=== PATIENT | female | born 1980 | race African-American/Black ===

== ENCOUNTER 2024-10-25 12:51 | Outpatient (AMB) | payer OTHER, SELFPAY ==
--- NOTE | 2024-10-25 12:55 | A.SPINEOV_ITS ---
Vital Signs 10/25/24 13:01 Height 5 ft 11 in Weight 336 lb BMI 46.9 Intake Visit Reasons: joint pain Intake Note: Ms. Carroll is here today c/o hip and back pain that causes tingling and numbness to her right leg. Venereal Disease Control Head Required: No Allergies Penicillins Allergy (Severe, Verified 10/25/24 13:02) Hives Assessment & Plan Assessment & Plan (1) SI (sacroiliac) joint dysfunction: Code(s): M53.3 - Sacrococcygeal disorders, not elsewhere classified Category: Medical Plan Dear FELISHA Sanchez, Thank you for referring Tika to our office today. She is a pleasant 44-year-old female who comes in today with a chief complaint of right sided low back pain. She has a somewhat longstanding history of right SI joint dysfunction, and recently had a right-sided SI joint steroid injection on 06/20/2024 which provided about 75% relief for 2 weeks. She had a 2nd follow-up injection on 10/03/2024 which lowered her overall pain from 8/10 to a 2/10. Reportedly after this injection she was able to complete her ADLs without issue before the medication wore off. Unfortunately, her pain has once again returned. She states that her pain began roughly 2 years ago without any known inciting incident. She reports that sitting up from a low positions such as a low car or from her recliner/chair at home cause her increased pain. Bending and picking things up also contribute to her pain. She does report some pain in her right anterior thigh well which is associated with her right hip pain. When describing her pain she points her finger directly to the right SI joint area. She denies any numbness/tingling associated with the pain. She denies any significant weakness of her lower extremities. No notable history of childbirth. PMH: Asthma, migraines, hypertension, insomnia, seasonal allergies, unspecified heart arrhythmia. Social hx: The patient denies smoking, reports no substance use. Medications: Montelukast, triamcinolone, clotrimazole/betamethasone, Botox, we will go be, zolpidem, furosemide, olmesartan, metoprolol, fluticasone, Breo Ellipta, cetirizine, riboflavin, sumatriptan, trazodone, acetazolamide, Ve ntolin. Allergies: Penicillin, pollen, cats, dogs. Physical exam: The patient has 5/5 strength in her upper and lower extremities, but does elicit pain to full strength testing of the right iliopsoas. No significant sensational deficits on exam. Her reflexes are absent in the bilateral patella and 1+ hypoactive elsewhere. She ambulates well without an antalgic gait. (+) Roberto's on the right, (+) gaenslens on the right, (+) right- sided SI joint compression test, (+) right-sided Juanjo finger test. (-) Cotto's, (-) clonus, (-) bilateral straight leg raise. Imaging review: MRI of the hip completed at [facility] in 2021 shows no acute pathology, although this exam is limited due to patient movement. MRI of the lumbar spine also completed at [facility] in 2018 was unavailable for image review. The MRI report state there was slight impingement of the left L2 nerve root but no other pathology was seen. More recent MRI lumbar completed at [facility] (patient has disc) shows similar left L2 impingement as described in 2018, with no other notable changes. Impression: Tkia is a very pleasant 44-year-old female who comes in today with a chief complaint of right-sided hip/low back pain which has been ongoing for the past 2 years. She has a known history of SI joint dysfunction on the right diagnosed and treated by our colleagues at [facility]. She has attempted several different cortisone injections, and experienced relief from 2 rounds of SI joint injections on the right. Unfortunately her pain continues to return just weeks after her injections. Given her history and physical exam, and lack of lumbar pathology explaining her right-sided symptoms, I believe she would be a good candidate for a right-sided SI joint allograft fusion. The patient seems somewhat to continued for the surgery as this would mean time off from work. I extensively discussed the surgical procedure and the postoperative healing course. I encouraged her to take some time to think about it and to call us back with a decision. In the interim I will review her case with Dr. Hargrove. Thank you for allowing us to care for your patient. The total time spent with this visit with this patient was 45 minutes reviewing history, physical exam, MRI imaging review, and implementation of treatment plan or further diagnostic testing Braxton Hargrove MD,PhD [facility] Coding Level of Care Code New Pt Level 4 (72185) Diagnoses SI (sacroiliac) joint dysfunction M53.3
[2024-10-25 13:01] VITALS: BMI 46.9
== END 2024-10-25 14:26 | disposition home or self-care (01) ==
PROVIDERS: PCP Internal Medicine; Referring Provider Nurse Practitioner Family; Visit Provider Physician Assistant
DX: M53.3 Sacrococcygeal disorders, not elsewhere classified (principal)
CPT/HCPCS: 99204

== ENCOUNTER → 2024-10-25 12:51 | Outpatient (BNVA) | payer OTHER, SELFPAY | PROVIDERS: PCP Internal Medicine; Referring Provider Nurse Practitioner Family; Visit Provider Physician Assistant ==

== ENCOUNTER 2025-03-15 11:51 | Outpatient (REF) | payer OTHER, SELFPAY ==
--- OUTSIDE RECORDS SUMMARY | 2025-03-15 13:23 | XMS_ITS | Clinical Summary ---
Author Organization [facility] Address [address] [place] [address] Phone Care Team Providers Care Heating Engineer Name Role Phone Yamileth Bryant Primary Care Provider [phone] Allergies Active Allergy Reactions Criticality Noted Date Comments Penicillins Hives 02/20/2025 Medications albuterol HFA (ProAir HFA) 90 mcg/actuation inhaler Inhale 2 puffs by mouth every 4 hours. Active levocetirizine (XYZAL) 5 mg tablet Take by mouth 1 (one) time each day in the evening. Active metoprolol succinate (TOPROL-XL) 100 mg 24 hr tablet Take 1 tablet (100 mg total) by mouth 1 (one) time each day. Do not crush or chew. Active montelukast (SINGULAIR) 10 mg tablet Take 1 tablet (10 mg total) by mouth at bedtime. Active norethindrone (AYGESTIN) 2.5 mg tablet Active triamcinolone (KENALOG) topical spray Apply topically 2 (two) times a day. Active fluticasone furoate-vilante roL (Breo Ellipta) 200-25 mcg/dose inhaler Inhale by mouth. Active atorvastatin (LIPITOR) 80 mg tablet Take 1 tablet (80 mg total) by mouth at bedtime. Active furosemide (LASIX) 40 mg tablet Take by mouth. Activ e olmesartan (BENICAR) 40 mg tablet Take 1 tablet (40 mg total) by mouth 1 (one) time each day. Active umeclidinium (Incruse Ellipta) 62.5 mcg/actuation inhalation Inhale 1 puff by mouth. Active ketotifen fumarate (ZADITOR) 0.035 % ophthalmic solution 1 drop 2 (two) times a day. Active tirzepatide, weight loss, (Zepbound) 5 mg/0.5 mL injection Inject 0.5 mL (5 mg total) under the skin every 7 (seven) days. Active terbinafine (LamISIL) 250 mg tablet Take 1 tablet (250 mg total) by mouth 1 (one) time each day. Active benzonatate (TESSALON) 200 mg capsule Take 1 capsule (200 mg total) by mouth 3 (three) times a day if needed for cough. Do not crush or chew. Active onabotulinumtox Griffin (BOTOX INJ) Inject 200 Units as directed. Active acetaZOLAMIDE (DIAMOX) 250 mg tablet Take 1 tablet (250 mg total) by mouth 1 (one) time each day. Active acetaZOLAMIDE (DIAMOX) 500 mg 12 hr capsule Take 1 capsule (500 mg total) by mouth 2 (two) times a day. Active riboflavin (VITAMIN B2) 400 mg tablet Take 1 tablet (400 mg total) by mouth 1 (one) time each day. Active Encounters Date Type Department Care Team Description 02/20/2025 2:00 PM EDT Office Visit [facility] Hemat[facility] Oncology [address] [place] [phone] Edelmira Gonzalez PA Iron deficiency anemia due to chronic blood loss (Primary Dx); Uncontrolled hypertension; Menorrhagia with irregular cycle 02/06/2025 Telephone [facility] Hematology Oncology [address] [place] [phone] Wilda Solorzano MD from Last 3 Months Surgical History Surgery Date Site/Laterality Comments OTHER SURGICAL HISTORY PROCEDURE:TONSILLECTOMY AND ADENOIDECTOMY Medical History Medical History Date Comments Anemia DX:Anemia Anemia DX:Anemia Hypertension DX:Hypertension Rhinitis DX:Rhinitis Pseudotumor cerebri DX:Pseudotum or cerebri Migraine DX:Migraine Social History Tobacco Use Types Packs/Day Years Used Date Smoking Tobacco: Never Smokeless Tobacco: Never Alcohol Use Standard Drinks/Week Comments No 0 (1 standard drink = 0.6 oz pur e alcohol) Comments Unknown Sex and Gender Information Value Date Recorded Sex Assigned at Not on file Legal Sex Female 11:26 AM EST Gender Identity Not on file Sexual Orientation Not on file Obstetrics History Last Filed Vital Signs Vital Sign Reading Time Taken Comments Blood Pressure 189/102 02/20/2025 2:20 PM EDT Pulse 86 02/20/2025 2:05 PM EDT Temperature 36.1 ??C (97 ??F) 02/20/2025 2:05 PM EDT Respiratory Rate - - Oxygen Saturation 100% 02/20/2025 2:05 PM EDT Inhaled Oxygen Concentration - - Weight 159 kg (351 lb) 02/20/2025 2:05 PM EDT Height 177.8 cm (5' 10 ) 06/16/2022 11:21 AM EDT Body Mass Index 50.36 06/16/2022 11:21 AM EDT Plan of Treatment Upcoming Encounters Date Type Department Care Team (Late st Contact Info) Description 02/19/2026 11:45 AM EDT Office Visit [facility] Hematology Oncology [address] [place] [phone] Wilda Solorzano MD [address] [place] [phone] Health Maintenance Due Date Last Done Comments Breast Cancer Screening 1978 Cervical Cancer Screening: P ap Smear 1999 Hepatitis B Vaccines (3 of 3 - 19+ 3-dose series) 06/05/2020 03/12/2020, 01/05/2020, 12/06/2019 Cholesterol Screening (Lipid Panel) 10/25/2022 Colorectal Cancer Screening: Colonoscopy 10/25/2022 Depression Screening 10/25/2022 HIV Screening 10/25/2022 Hepatitis C Screening 10/25/2022 Social Influencers of Health Screening 10/25/2022 Hypertension/CHF/CAD Annual BMP Blood Test 10/30/2022 HPV Vaccines (3 - 3-dose SCD M series) 05/08/2023 01/15/2023, 11/07/2022 COVID-19 Vaccine ( - 2023-2 5 season) 2024 Influenza Vaccine (Season Ended) 2025 DTaP,Tdap,and Td Vaccines (2 - Td or Tdap) 12/15/2034 12/15/2024 Pneumococcal Vaccine: Pediatrics (0 to 5 Years) and At-Risk Patients (6 to 64 Years) Completed 11/07/2022 HIB Vaccines Aged Out No longer eligi ble based on patient's age to complete this topic Hepatitis A Vaccines Aged Out No long er eligible based on patient's age to complete this topic IPV Vaccines Aged Out No longer eligi ble based on patient's age to complete this topic MMR Vaccines Aged Out No longer eligi ble based on patient's age to complete this topic Meningococcal ACWY Vaccine Aged Out N o longer eligible based on patient's age to complete this topic Meningococcal B Vaccine Aged Out No l onger eligible based on patient's age to complete this topic RSV Immunization Patients Under 20 months Aged Out No longer eligible b ased on patient's age to complete this topic Varicella Vaccines Aged Out No longer eligible based on patient's age to complete this topic Insurance [facility] [address] [place] [address] Care Teams Heating Engineer Relationship Specialty Start Date End Date Yamileth Bryant PA [address] [place] [phone] PCP - General 11/14/24
--- OUTSIDE RECORDS SUMMARY | 2025-03-15 13:23 | XMS_ITS | Clinical Summary ---
Author Organization [facility] Address [address] [place] [address] Care Team Providers Care Sales Assistants And Salespersons Name Role Phone Mars Gonzalez MD Primary Care Provider [phone] Allergies Active Allergy Reactions Criticality Noted Date Comments Bupropion 10/12/2018 Penicillins 06/23/2017 Medications Medication Sig Dispensed Refills Start Date End Date Status acetaZOLAMIDE (DIAMOX SEQUELS) 500 MG capsule Take 500 mg by mouth 3 (three) times a day. 0 Active furosemide (LASIX) 40 MG tablet Take 40 mg by mouth 2 (two) times a day. 0 Active montelukast (SINGULAIR) 10 MG tablet Take 1 tablet (10 mg total) by mouth every night at bedtime. 0 Active lisinopril (PRINIVIL,ZESTRIL) tablet 40 mg Take 40 mg by mouth daily. 0 Active acetaZOLAMIDE (DIAMOX) 125 MG tablet Take 1 tablet (125 mg total) by mouth 3 (three) times a day. 0 Active SUMATRIPTAN-NAPROXEN SODIUM PO Take 100 mg by mouth daily as needed. 0 Active metoprolol succinate (TOPROL-XL) 24 hr tablet 100 mg Take 100 mg by mouth daily. 0 Active ProAir HFA 108 (90 Base) MCG/ACT inhaler Inhale 2 puffs into the lungs every 4 (four) hours. 0 03/03/2022 Active ammonium lactate (AMLACTIN) 12 % cream APPLY TO BODY TWICE DAILY UP TO 4X DAILY 0 04/17/2022 Active Breo Ellipta 100-25 MCG/INH inhaler daily. 0 04/23/2022 Active Incruse Ellipta 62.5 MCG/INH AEPB INHALE 1 PUFF EVERY 24 HOURS DOSES SHOULD BE TAKEN AT LEAST 24 HOURS APART 0 04/23/2022 Active Triamcinolone Acetonide 55 MCG/ACT AERO SPRAY 2 SPRAYS INTO EACH NOSTRIL EVERY DAY 0 04/17/2022 Active cetirizine (ZyrTEC) 10 MG tablet Take 1 tablet by mouth every night at bedtime. 0 09/20/2020 Active losartan (COZAAR) 100 MG tablet Take 100 mg by mouth daily. 0 04/17/2022 Active norethindrone (MICRONOR) 0.35 MG tablet Take 1 tablet (0.35 mg total) by mouth daily. 0 03/29/2023 Active Magnesium Gluconate 250 MG TABS Take 250 mg by mouth. 0 09/04/2022 Active levocetirizine (XYZAL) 5 MG tablet Take 1 tablet (5 mg total) by mouth daily as needed. 0 03/26/2023 Active Ozempic, 0.25 or 0.5 MG/DOSE, 2 MG/3ML SOPN 0 04/23/2023 Ac tive olmesartan (BENICAR) tablet 20 mg Take by mouth. 0 08/23/2023 Active zolpidem (AMBIEN) 5 MG tablet Take by mouth. 0 04/19/2024 Active Active Problems Problem Noted Date Diagnosed Date Excessive sweating 06/16/2022 Low serum vitamin B12 04/26/2020 Iron deficiency anemia secondary to blood loss ( chronic) 06/14/2019 Absolute anemia 06/14/2019 Menorrhagia with irregular cycle 06/14/2019 Pseudotumor cerebri syndrome 06/14/2019 Social History Tobacco Use Types Packs/Day Years Used Date Smoking Tobacco: Never Smokeless Tobacco: Never Alcohol Use Standard Drinks/Week Comments No 0 (1 standard drink = 0.6 oz pur e alcohol) Sex and Gender Information Value Date Recorded Sex Assigned at Female 04/23/2023 4:27 PM EDT Gender Identity Not on file Sexual Orientation Not on file Job Start Date Occupation Industry Not on file Not on file Not on file Last Filed Vital Signs Vital Sign Reading Time Taken Comments Blood Pressure 185/95 07/15/2024 2:00 PM EDT Pulse 93 07/15/2024 11:20 AM EDT Temperature 36.7 ??C (98.1 ??F) 07/15/2024 1 1:20 AM EDT Respiratory Rate 18 07/15/2024 11:2 0 AM EDT Oxygen Saturation 100% 07/15/2024 11: 20 AM EDT Inhaled Oxygen Concentration - - Weight 147.7 kg (325 lb 9.6 oz) 022 11:21 AM EDT Height 177.8 cm (5' 10 ) 06/16/2022 11: 21 AM EDT Body Mass Index 46.72 06/16/2022 11:21 AM EDT Plan of Treatment Health Maintenance Due Date Last Done Comments Hepatitis C Screening 1978 COVID-19 Vaccine (#1) 01/27/1979 Depression Screening 1990 BMI Counseling 1996 Preventative Health Evaluation 1996 DTap / Tdap / Td (1 - Tdap) 1997 Cervical Cancer Screening (Pap Smear) 1999 Hepatitis B Vaccines (3 of 3 - 19+ 3-dose series) 06/05/2020 03/12/2020, 01/05/2020, 12/06/2019 Colon Cancer Screening (Colonoscopy) 2023 Influenza Vaccine (#1) 2024 Pneumococcal Vaccine Aged Out No long er eligible based on patient's age to complete this topic RSV Ped < 20 months Aged Out No longe r eligible based on patient's age to complete this topic Insurance Payer Benefit Plan / Group Subscriber ID Effective Dates Phone Address [facility] [id number] 2023-Present [address] [facility] [address] [place] [address] HMO Care Teams Sales Assistants And Salespersons Relationship Specialty Start Date End Date Mars Gonzalez MD [address] [facility] [address] [place] [phone] PCP - General Internal Medicine 06/26/17
--- OUTSIDE RECORDS SUMMARY | 2025-03-15 13:23 | XMS_ITS | Encounter Summary ---
Author Organization [employer] Address [address] [facility] 7 [place] [address] Care Team Providers Care Vice President Business & Corporate Development Name Role Phone PcpJenny Unassigned Primary Care Provider U navailable Provider, Not In System Primary Care Provider Un available Tiera Blanco OD Unavailable Cristian Gonzalez Primary Care Provider [phone] Encounter Details Date Type Department Care Team (Late st Contact Info) Description 02/16/2023 Orders Only Jenny [facility] OPTOMETRY [address] [place] [address] Tiera Blanco, OD [address] [place] [address] Social History Tobacco Use Types Packs/Day Years Used Date Smoking Tobacco: Never Comments Unknown Sex and Gender Information Value Date Recorded Sex Assigned at Female 01/20/2023 4:46 PM EST Legal Sex Female 8:40 PM EDT Gender Identity Female 01/20/2023 4:46 PM EST Sexual Orientation Straight 01/20/2023 4: 46 PM EST COVID-19 Exposure Response Date Recorded In the last 10 days, have yo u been in contact with someone who was confirmed or suspected to have Coronavirus/COVID-19? No / Unsure 02/02/2023 4:02 PM EDT documented as of this encounter Plan of Treatment Not on file documented as of this encounter Visit Diagnoses Not on filedocumented in this encounter Care Teams Vice President Business & Corporate Development Relationship Specialty Start Date End Date Jenny Olsenssigned PCP - General Family Medicine 03/16/23 04/27/24 Provider, Not In System PCP - General Family Medicine 04/28/24 09/11/24 Cristian Gonzalez [address] [place] [address] PCP - General 09/12/24 Tiera Blanco OD [address] [place] [address] Optometry 04/28/24 Abner Tiwari [facility] Neurology 08/28/23 documented as of this encounter
--- OUTSIDE RECORDS SUMMARY | 2025-03-15 13:23 | XMS_ITS | Clinical Summary ---
Author Organization [employer] Address [address] [place] [address] [place] [address] Care Team Providers Care Photoengraving Apprentice Name Role Phone Tiera Blanco OD Unavailable Cristian Gonzalez Primary Care Provider [phone] Allergies Active Allergy Reactions Criticality Noted Date Comments Penicillin G Hives 01/13/2023 Medications UNABLE TO FIND Allergy- Injection once a week Active Triamcinolone Acetonide (NASACORT AQ NA) Nasacort AQ A ctive Fluticasone Propionate HFA (FLOVENT HFA IN) Flovent HFA A ctive Budesonide-Formote rol Fumarate (SYMBICORT IN) Symbicort Activ e Albuterol Sulfate (PROAIR HFA IN) ProAir HFA Act kenna Montelukast Sodium (SINGULAIR PO) Singulair Activ e Cetirizine HCl (ZYRTEC PO) Zyrtec Active PROPRANOLOL HCL ER PO Propanolol Hcl XR 1 Active Furosemide (LASIX PO) Lasix Active acetaZOLAMIDE (DIAMOX SEQUELS PO) Diamox Sequels Activ e OnabotulinumtoxinA (BOTOX IM) Inject into the shoulder, thigh, or buttocks. For headaches Active Ketotifen Fumarate 0.035 % solutionIndication s:Allergic conjunctivitis of both eyes Administer 1 drop into affected eye(s) 2 times daily. 5 mL 6 4 025 Active Active Problems Problem Noted Date Diagnosed Date History of Chiari malformation 09/12/2024 MATT on CPAP 09/12/2024 Severe obesity 09/12/2024 Pseudotumor cerebri 01/13/2023 Essential hypertension 10/20/2021 Asthma 10/20/2021 Tachycardia 10/20/2021 Migraine 10/20/2021 Iron deficiency anemia secondary to blood loss ( chronic) 06/14/2019 08/27/2023 Social History Tobacco Use Types Packs/Day Years Used Date Smoking Tobacco: Never Tobacco Cessation:Counseling Given: Not Answered Comments Unknown Sex and Gender Information Value Date Recorded Sex Assigned at Female 01/20/2023 4:46 PM EST Legal Sex Female 8:40 PM EDT Gender Identity Female 01/20/2023 4:46 PM EST Sexual Orientation Straight 01/20/2023 4: 46 PM EST Last Filed Vital Signs Vital Sign Reading Time Taken Comments Blood Pressure 164/98 01/20/2022 2:00 PM EST Pulse - - Temperature 36.1 ??C (97 ??F) 02/02/2023 4:10 PM EDT Respiratory Rate - - Oxygen Saturation - - Inhaled Oxygen Concentration - - Weight - - Height - - Body Mass Index - - Plan of Treatment Health Maintenance Due Date Last Done Comments CT Colonography 1978 Colonoscopy 1978 Colorectal Cancer Screening 1978 Depression Screening 1978 FIT DNA/Cologuard 1978 FIT 1978 FOBT 1978 HIV Screening 1978 Lipid Panel 1978 SDOH Screening 1978 Sigmoidoscopy 1978 Alcohol/Substance Use Screening 1990 Family Planning (PISQ) 1993 Hepatitis C Screening 1996 DTaP/Tdap/Td Vaccines (1 - Tdap) 1997 Pap Smear 1999 Cervical Cancer Screening 2008 HPV/Cotest 2008 Mammogram 2018 Hepatitis B Vaccines (3 of 3 - 19+ 3-dose series) 06/05/2020 03/12/2020, 01/05/2020, 12/06/2019 HPV Vaccines (3 - 3-dose SCDM series) 05/08/2023 01/15/2023, 01/15/2023, 11/07/2022, Additional history exists COVID-19 Vaccine (1 - 2023- season) 2024 Influenza Vaccine (#1) 2024 Tobacco Screening 09/12/2025 09/12/2024 Zoster Vaccines (1 of 2) 2028 RSV Patients and Patients Aged 60 years or older (1 - 1-dose 75+ series) 2053 Pneumococcal Vaccine: Pediatrics (0 to 5 Years) and At-Risk Patients (6 to 49) Years) Completed 11/07/2022 HIB Vaccines Aged Out No longer eligi ble based on patient's age to complete this topic Hepatitis A Vaccines Aged Out No long er eligible based on patient's age to complete this topic IPV Vaccines Aged Out No longer eligi ble based on patient's age to complete this topic Meningococcal Vaccine Aged Out No deya yolanda eligible based on patient's age to complete this topic RSV under 20 months Aged Out No longe r eligible based on patient's age to complete this topic Rotavirus Vaccines Aged Out No longer eligible based on patient's age to complete this topic Insurance [facility] Care Teams Photoengraving Apprentice Relationship Specialty Start Date End Date Cristian Gonzalez [address] [place] [id number] PCP - General 09/12/24 Tiera Blanco OD [address] [place] [address] Optometry 04/28/24 Abner Tiwari [facility] Neurology 08/28/23
--- OUTSIDE RECORDS SUMMARY | 2025-03-15 13:23 | XMS_ITS | Encounter Summary ---
Author Organization [employer] Address [address] [facility] [address] [place] [address] Care Team Providers Care Vp Genetic Name Role Phone PcpJenny Unassigned Primary Care Provider U navailable Provider, Not In System Primary Care Provider Un available Tiera Blanco OD Unavailable Cristian Gonzalez Primary Care Provider [phone] Encounter Details Date Type Department Care Team (Late st Contact Info) Description 02/16/2023 Orders Only Jenny [facility] OPTOMETRY [address] [place] [address] Tiera Blanco, OD [address] [place] [address] Social History Tobacco Use Types Packs/Day Years [...] on filedocumented in this encounter Care Teams Vp Genetic Relationship Specialty Start Date End Date Jenny Olsenssigned PCP - General Family Medicine 03/16/23 04/27/24 Provider, Not In System PCP - General Family Medicine 04/28/24 09/11/24 Cristian Gonzalez [address] [place] [address] PCP - General 09/12/24 Tiera Blanco OD [address] [place] [address] Optometry 04/28/24 Abner Tiwari [facility] Neurology 08/28/23 documented as of this encounter
== END 2025-03-15 11:52 | disposition home or self-care (01) ==
LOC: HO.HOSX 11:51
PROVIDERS: Visit Provider Physician Assistant
DX: Z13.89 Encounter for screening for other disorder (principal)

== ENCOUNTER 2025-05-02 | Outpatient (REF) | payer OTHER, SELFPAY ==
--- NOTE | ~2025-05-02 | XR_ITS ---
EXAMINATION: XR SACROILIAC JOINTS CLINICAL INFORMATION: M53.3 - Sacrococcygeal disorders, not elsewhere classified COMPARISON: None available. TECHNIQUE: 3 views of the sacroiliac joints FINDINGS: There is mild subchondral sclerosis involving the right greater than left SI joints. There is minimal irregularity of the articular portion of the mid to lower right SI joint and central and lower left SI joint. There is no bony fusion. There are marginal osteophytes inferiorly. XR/XR sacroiliac joint 1-2V IMPRESSION: Mild to moderate degenerative changes of the right SI joint and mild degenerative changes of left SI joint. Electronically signed by: Osiel Vega MD 05/02/2025 11:41 AM EDT
--- NOTE | ~2025-05-02 | CT_ITS ---
CLINICAL HISTORY: M53.3 - Sacrococcygeal disorders, not elsewhere classified CT pelvis without contrast Comparison: None provided Findings: Markedly enlarged lobulated uterus measuring 13.4 x 13.4 x 9.6 cm The bones are intact. IMPRESSION: No evidence of acute fracture or dislocation. Markedly enlarged fibroid uterus. This document has been electronically signed by: Faraz Manning MD on 05/02/2025 22:40:37
--- OUTSIDE RECORDS SUMMARY | 2025-05-16 09:42 | XMS_ITS | Clinical Summary ---
Author Organization [facility] Address [address] [place] [address] Phone Care Team Providers Care Cold Press Operator Name Role Phone Yamileth Bryant Primary Care Provider [phone] Allergies Active Allergy Reactions Criticality Noted Date Comments Penicillins Hives 02/20/2025 Medications albuterol HFA (ProAir HFA) 90 mcg/actuation inhaler Inhale 2 puffs by mouth every 4 hours. 2 Active levocetirizine (XYZAL) 5 mg tablet Take [...] Description 02/20/2025 2:00 PM EDT Office Visit [facility] Hematology Oncology [address] [place] [address] Edelmira Gonzalez PA Iron deficiency anemia due to chronic blood loss (Primary Dx); Uncontrolled hypertension; Menorrhagia with irregular cycle from Last 3 Months Surgical History Surgery [...] 86 02/20/2025 2:05 PM EDT Temperature 36.1 C (97 F) 02/20/2025 2:05 PM EDT Respiratory Rate - [...] Description 02/19/2026 11:45 AM EDT Office Visit [facility] Hematology Oncology [address] [place] [address] Nelson-Wilda Lewis MD [address] [place] [address] Health Maintenance Due Date Last Done Comments [...] patient's age to complete this topic Insurance [facility] [address] [place] [address] Care Teams Cold Press Operator Relationship Specialty Start Date End Date Yamileth Bryant PA [address] [place] [address] PCP - General 11/14/24
--- OUTSIDE RECORDS SUMMARY | 2025-05-16 09:42 | XMS_ITS | Clinical Summary ---
Author Organization [facility] Address [address] [place] [address] Care Team Providers Care Neon Technician Name Role Phone Mars Gnozalez MD Primary Care Provider [phone] Allergies Active Allergy Reactions Criticality Noted Date [...] 93 07/15/2024 11:20 AM EDT Temperature 36.7 C (98.1 F) 07/15/2024 11:20 AM EDT Respiratory Rate 18 07/15/2024 11:2 [...] Colon Cancer Screening (Colonoscopy) 2023 Influenza Vaccine (Season Ended) 2025 Pneumococcal Vaccine Aged Out No long er eligible based on patient's age to complete this topic RSV Ped < 20 months Aged Out No longe r eligible based on patient's age to complete this topic Insurance Payer Benefit Plan / Group Subscriber ID Effective Dates Phone Address [facility] [id number] 2023-Present [address] [facility] [address] [place] [address] HMO Care Teams Neon Technician Relationship Specialty Start Date End Date Mars Gonzalez MD [address] [address] PCP - General Internal Medicine 06/26/17
--- OUTSIDE RECORDS SUMMARY | 2025-05-16 09:42 | XMS_ITS | Encounter Summary ---
Author Organization [facility] Address [address] [facility] 7 [place] [address] Care Team Providers Care Chemical Applicator Name Role Phone Pcp, Jenny Unassigned Primary Care Provider U navailable Provider, Not In System Primary Care Provider Un available Tiera Blanco OD Unavailable Cristian Gonzalez Primary Care Provider [phone] Encounter Details Date Type Department Care Team (Late st Contact Info) Description 02/16/2023 Orders Only [facility] OPTOMETRY [address] [place] [address] Tiera Blanco, OD [address] [place] [address] Social History Tobacco Use Types Packs/Day Years [...] as of this encounter Plan of Treatment Upcoming Encounters Date Type Department Care Team (Late st Contact Info) Description 08/07/2025 12:00 PM EDT Office Visit [facility] OPTOMETRY [address] [place] [address] Tiera Blanco, OD [address] [place] [address] documented as of this encounter Visit Diagnoses Not on filedocumented in this encounter Care Teams Chemical Applicator Relationship Specialty Start Date End Date PcpJenny Unassigned PCP - General Family Medicine 03/16/23 04/27/24 Provider, Not In System PCP - General Family Medicine 04/28/24 09/11/24 Cristian Gonzalez [address] [place] [address] PCP - General 09/12/24 Tiera Blanco OD [address] [place] [address] Optometry 04/28/24 Abner Tiwari [facility] Neurology 08/28/23 documented as of this encounter
== END 2025-05-02 00:01 | disposition home or self-care (01) ==
LOC: HO.CT
PROVIDERS: Visit Provider Physician Assistant
DX: M53.3 Sacrococcygeal disorders, not elsewhere classified (principal)
CPT/HCPCS: 72192; 72200

== ENCOUNTER → 2025-05-02 11:00 | Outpatient (BNV) | payer OTHER, SELFPAY | PROVIDERS: Visit Provider Radiology Diagnostic Radiology | DX: N85.2 Hypertrophy of uterus (principal); M16.10 Unilateral primary osteoarthritis, unspecified hip | CPT/HCPCS: 72192; 72200 ==

== ENCOUNTER 2025-09-22 08:20 | Outpatient (AMB) | payer OTHER, SELFPAY ==
--- OUTSIDE RECORDS SUMMARY | 2025-09-22 08:39 | XMS_ITS | Encounter Summary ---
Author Organization [facility] Address [address] [place] [phone] Phone Care Team Providers Care Salad Bar Clerk Name Role Phone Kishor Aguiar MD Primary Care Provide r Encounter Details Date Type Department Care Team ([facility] st Contact Info) Description 09/13/2025 Orders Only [facility] [address] [place] [address] Provider, Cassi, Social History Tobacco Use Types Packs/Day Years Used Date Smoking Tobacco: Never Assessed Comments Unknown Sex and Gender Information Value Date Recorded Sex Assigned at Not on file Legal Sex Female 11:41 AM EDT Gender Identity Not on file Sexual Orientation Not on file documented as of this encounter Plan of Treatment Not on file documented as of this encounter Procedures Procedure Name Priority Date/Time Associated Diagnosis Comments CBC (INCLUDES DIFF/PLT) (EXTERNAL LAB ENTRY) Routine 07/28/2025 11:06 AM EDT documented in this encounter Results * CBC (Includes Diff/Plt) (External Lab) (07/28/2025 11:06 AM EDT) Blood Historical Provider LAB BLOOD ORDERABLES Roberta l Result documented in this encounter Visit Diagnoses Not on filedocumented in this encounter Care Teams Salad Bar Clerk Relationship Specialty Start Date End Date Kishor Aguiar MD [address] [place] [address] PCP - General Internal Medicine 07/06/25 documented as of this encounter
--- OUTSIDE RECORDS SUMMARY | 2025-09-22 08:39 | XMS_ITS | Encounter Summary ---
Author Organization [facility] Address [address] [facility] 7 [place] [address] Care Team Providers Care Creative Lead Name Role Phone Jenny Olsen Unassigned Primary Care Provider U navailable Provider, Not In System Primary Care Provider Un available Tiera Blanco OD Unavailable Cristian Gonzalez Primary Care Provider [phone] Encounter Details Date Type Department Care Team (Late st Contact Info) Description 02/16/2023 Orders Only Jenny [facility] OPTOMETRY [address] [place] [address] Tiera Blanco, OD [address] [place] [address] Social History Tobacco Use Types Packs/Day Years [...] on filedocumented in this encounter Care Teams Creative Lead Relationship Specialty Start Date End Date Jenny Olsenssyessy PCP - General Family Medicine 03/16/23 04/27/24 Provider, Not In System PCP - General Family Medicine 04/28/24 09/11/24 Cristian Gonzalez [address] [place] [address] PCP - General 09/12/24 Tiera Blanco OD [address] [place] [address] Optometry 04/28/24 Abner Tiwari [facility] Neurology 08/28/23 documented as of this encounter
--- OUTSIDE RECORDS SUMMARY | 2025-09-22 08:39 | XMS_ITS | Clinical Summary ---
Author Organization [facility] Address [address] [facility] [address] [place] [address] Phone Care Team Providers Care Framer Name Role Phone Kishor Aguiar MD Primary Care Provide r Allergies Active Allergy Reactions Criticality Noted Date Comments Bupropion 10/12/2018 Other 07/06/2025 Seasonal allergies Penicillins Hives,Rash Low 06/23/2017 Other Reaction(s): unnknown reaction Medications atorvastatin (LIPITOR) 80 MG tablet Take 80 mg by mouth 1 (one) time each day Active furosemide (LASIX) 40 MG tablet Take by mouth 4 Active Fluticasone Furoate-Vilante rol 200-25 MCG/ACT aerosol powder Inhale Active meloxicam (MOBIC) 15 MG tablet Take 1 tablet by mouth 5 Active metoprolol succinate XL (TOPROL-XL) 100 MG 24 hr tablet Take 100 mg by mouth in the morning. Active montelukast (SINGULAIR) 10 MG tablet Take 10 mg by mouth every night Active norethindrone (MICRONOR) 0.35 MG tablet Take 1 tablet by mouth 1 (one) time each day Active olmesartan (BENICAR) 40 MG tablet Take 40 mg by mouth 1 (one) time each day Active onabotulinumtox Griffin (Botox) 100 units injection See Instructions, 155units be administered by provider every 3 months for chronic migraine, # 2 kit, 0 Refills, Maintenance, 03/03/25 10:41:00 AM EDT, [facility], Partial fill upon patient request if the prescription is for a schedule II opioid drug., 180, cm, 02/13/25 9:45:00 EDT, Height, 148, kg, 04/17/24 0:29:00 EDT, Dry Weight 5 Active Umeclidinium Eckley (Incruse Ellipta) 62.5 MCG/ACT aerosol powder Inhale 1 puff 2 Active NIFEdipine XL (Procardia XL) 60 MG 24 hr tablet Take 1 tablet (60 mg total) by mouth 1 (one) time each day Do not crush, chew, or split. 30 tablet 11 5 07/06/20 26 Active Active Problems Problem Noted Date Diagnosed Date Chiari malformation 07/06/2025 Bursitis of right hip 07/06/2025 Cramp 07/06/2025 Disturbance in sleep behavior 07/06/2025 Edema of foot 07/06/2025 Hyperlipidemia 07/06/2025 Iron deficiency anemia 07/06/2025 Hypertensive disorder 07/06/2025 Low back pain 07/06/2025 Menorrhagia 07/06/2025 Mixed anxiety and depressive disorder 07/06/2025 Morbid obesity 07/06/2025 Headache 07/06/2025 Neck pain 07/06/2025 Obstructive sleep apnea syndrome 07/06/2025 Palpitations 07/06/2025 Pigmented skin lesion 07/06/2025 Polycystic ovary syndrome 07/06/2025 Prediabetes 07/06/2025 Tinea pedis 07/06/2025 Uterine leiomyoma 07/06/2025 H/O: brain disorder 09/12/2024 Severe obesity 09/12/2024 Obstructive sleep apnea syndrome 09/12/2024 Excessive sweating 06/16/2022 Asthma 10/20/2021 Essential hypertension 10/20/2021 Migraine 10/20/2021 Tachycardia 10/20/2021 Chronic iron deficiency anemia secondary to bloo d loss 06/14/2019 Benign intracranial hypertension 06/14/2019 Anemia 06/14/2019 Menometrorrhagia 06/14/2019 Encounters Date Type Department Care Team Description 09/13/2025 Orders Only [facility] [address] [address] ProviderCassi MD 07/07/2025 Orders Only [facility] [address] [address] Davion Torrez MD Hypertension 07/06/2025 11:00 AM EDT Office Visit [facility] [address] [address] Davion Torrez MD Hypertension (Primary Dx); Obstructive sleep apnea syndrome; Other obesity from Last 3 Months Social History Tobacco Use Types Packs/Day Years Used Date Smoking Tobacco: Never Assessed Comments Unknown Sex and Gender Information Value Date Recorded Sex Assigned at Not on file Legal Sex Female 11:41 AM EDT Gender Identity Not on file Sexual Orientation Not on file Last Filed Vital Signs Vital Sign Reading Time Taken Comments Blood Pressure 172/96 07/06/2025 11:23 AM EDT Pulse - - Temperature - - Respiratory Rate - - Oxygen Saturation - - Inhaled Oxygen Concentration - - Weight 157 kg (346 lb) 07/06/2025 11:23 AM EDT Height - - Body Mass Index - - Plan of Treatment Health Maintenance Due Date Last Done Comments Hepatitis B Vaccine (1 of 3 - 19+ 3-dose series) 1997 03/12/2020, 01/05/2020, 12/06/2019 Pneumococcal Vaccine: Peds ( 0 to 5 Years) and At-Risk Patients (6 to 49 Years) (1 of 2 - PCV) 1997 Influenza Vaccine (#1) 2025 Procedures Procedure Name Priority Date/Time Associated Diagnosis Comments CBC (INCLUDES DIFF/PLT) (EXTERNAL LAB ENTRY) Routine 07/28/2025 11:06 AM EDT from Last 3 Months Results * CBC (Includes Diff/Plt) (External Lab) (07/28/2025 11:06 AM EDT) Blood Historical Provider LAB BLOOD ORDERABLES Roberta l Result from Last 3 Months Insurance [facility] Care Teams Framer Relationship Specialty Start Date End Date Kishor Aguiar MD [address] [place] [id number] PCP - General Internal Medicine 07/06/25
--- OUTSIDE RECORDS SUMMARY | 2025-09-22 08:39 | XMS_ITS | Clinical Summary ---
Author Organization [facility] Address [address] [place] [address] Phone Care Team Providers Care Pointer Helper Name Role Phone Yamileth Bryant Primary Care Provider [phone] Allergies Active Allergy Reactions Criticality Noted Date [...] Encounters Date Type Department Care Team Description 07/28/2025 Telephone [facility] Hematology Oncology [address] [place] [address] Edelmira Gonzalez PA from Last 3 Months Surgical History Surgery [...] Description 02/19/2026 11:45 AM EDT Office Visit [facility] Hematology Oncology [address] [place] [address] Wilda Solorzano MD [address] [place] [address] Health Maintenance Due Date Last Done Comments Breast Cancer Screening 1978 Colorectal Cancer Screening: Colonoscopy 1978 Cervical Cancer Screening: P ap Smear 1999 Hepatitis B Vaccines (3 of 3 - 19+ 3-dose series) 06/05/2020 03/12/2020, 01/05/2020, 12/06/2019 Cholesterol Screening (Lipid Panel) 10/25/2022 HIV Screening 10/25/2022 Hepatitis C Screening 10/25/2022 Social Influencers of Health Screening 10/25/2022 Hypertension/CHF/CAD Annual BMP Blood Test 10/30/2022 HPV Vaccines (3 - 3-dose SCD M series) 05/08/2023 01/15/2023, 11/07/2022 Depression Screening 11/16/2024 COVID-19 Vaccine (1 - 2023-2 5 season) 2025 Influenza Vaccine (#1) 2025 DTaP,Tdap,and Td Vaccines (2 - Td or Tdap) 12/15/2034 12/15/2024 RSV Immunization Adult Patients (1 - 1-dose 75+ series) 2053 Pneumococcal Vaccine: Pediatrics (0 to 5 Years) and At-Risk Patients (6 to 49 Years) Completed 11/07/2022 HIB Vaccines Aged Out [...] patient's age to complete this topic Insurance [facility] [address] [place] [address] Care Teams Pointer Helper Relationship Specialty Start Date End Date Yamileth Bryant PA [address] [place] [phone] PCP - General 11/14/24
--- OUTSIDE RECORDS SUMMARY | 2025-09-22 08:39 | XMS_ITS | Clinical Summary ---
Author Organization [employer] Address [address] [place] [address] 7t [place] [address] Care Team Providers Care School Bus Driver/Teacher Assistant Name Role Phone Tiera Blanco OD Unavailable Cristian Gonzalez Primary Care Provider [phone] Allergies Active Allergy Reactions Criticality Noted Date [...] eye(s) 2 times daily. 5 mL 6 09/12/20 24 025 Active Problems Problem Noted Date Diagnosed Date History of Chiari malformation 09/12/2024 MATT on CPAP 09/12/2024 Severe obesity (CMS/HCC) 09/12/2024 Pseudotumor cerebri 01/13/2023 Essential hypertension 10/20/2021 [...] PM EST Pulse - - Temperature 36.1 C (97 F) 02/02/2023 4:10 PM EDT Respiratory Rate - [...] Panel 1978 SDOH Screening 1978 Sigmoidoscopy 1978 Disability Screening 1978 Alcohol/Substance Use Screening 1990 Tobacco Screening 1990 Family Planning (PISQ) 1993 Hepatitis C Screening 1996 Pap Smear 1999 Cervical Cancer Screening 2008 HPV/Cotest 2008 Mammogram 2018 Hepatitis B Vaccines (3 of 3 - 19+ 3-dose series) 06/05/2020 03/12/2020, 01/05/2020, 12/06/2019 HPV Vaccines (3 - 3-dose series) 05/08/2023 01/15/2023, 01/15/2023, 11/07/2022, Additional history exists COVID-19 Vaccine (1 - 2023- season) 2025 Influenza Vaccine (#1) 2025 Zoster Vaccines (1 of 2) 2028 DTaP/Tdap/Td Vaccines (2 - Td or Tdap) 12/15/2034 12/15/2024 RSV Patients and Patients Aged 60 years or older (1 - 1-dose 75+ series) 2053 Pneumococcal Vaccine: Pediatrics (0 to 5 Years) and At-Risk Patients (6 to 49) Years Completed 11/07/2022 HIB Vaccines Aged Out No [...] patient's age to complete this topic Insurance [facility] Care Teams School Bus Driver/Teacher Assistant Relationship Specialty Start Date End Date Cristian Gonzalez [address] [place] [address] PCP - General 09/12/24 Tiera Blanco OD [address] [place] [address] Optometry 04/28/24 Abner Tiwari [facility] Neurology 08/28/23
--- OUTSIDE RECORDS SUMMARY | 2025-09-22 08:39 | XMS_ITS | Encounter Summary ---
Author Organization [employer] Address [address] [facility] 7t [place] [address] Care Team Providers Care Lead Athlete Name Role Phone Jenny Olsen Unassigned Primary Care Provider U navailable Provider, Not In System Primary Care Provider Un available Tiera Blanco OD Unavailable Cristian Gonzalez Primary Care Provider [phone] Encounter Details Date Type Department Care Team (Late st Contact Info) Description 02/16/2023 Orders Only Jenny [facility] OPTOMETRY [address] [place] [address] Tiera Blanco, OD [address] [place] [address] Social History Tobacco Use Types Packs/Day Years [...] on filedocumented in this encounter Care Teams Lead Athlete Relationship Specialty Start Date End Date Jenny Olsenssigned PCP - General Family Medicine 03/16/23 04/27/24 Provider, Not In System PCP - General Family Medicine 04/28/24 09/11/24 Cristian Gonzalez [address] [place] [address] PCP - General 09/12/24 Tiera Blanco OD [address] [place] [address] Optometry 04/28/24 Abner Tiwari [facility] Neurology 08/28/23 documented as of this encounter
--- OUTSIDE RECORDS SUMMARY | 2025-09-22 08:39 | XMS_ITS | Clinical Summary ---
Author Organization [facility] Address [address] [place] [address] Care Team Providers Care Cattle Farmer Name Role Phone Mars Gonzalez MD Primary Care Provider [phone] Allergies Active Allergy Reactions Criticality Noted Date [...] Cancer Screening (Colonoscopy) 2023 Influenza Vaccine (#1) 2025 Pneumococcal Vaccine Aged Out No long er eligible based on patient's age to complete this topic RSV Ped < 20 months Aged Out No longe r eligible based on patient's age to complete this topic Insurance Payer Benefit Plan / Group Subscriber ID Effective Dates Phone Address [facility] [id number] 2023-Present 1 [facility] [address] [place] [address] HMO Care Teams Cattle Farmer Relationship Specialty Start Date End Date Mars Gonzalez MD [address] [address] PCP - General Internal Medicine 06/26/17
--- NOTE | 2025-09-22 10:21 | A.OFFVIS_ITS ---
VS Expanded 09/22/25 10:41 Height 5 ft 11 in Weight 354 lb BMI 49.4 Body Fat % 49 Body Fat Mass 173.6 Fat Free Mass 180.4 Visceral Fat Rating 17 Body Water % 36.4 Body Water Mass 128.8 Basal Metabolic Rate/Score 2,624 Intake Visit Reasons: TV [employer] [facility] BMI 49.4 Allergies Penicillins Allergy (Severe, Verified 09/22/25 10:22) Hives Medication List - Last Reconciled 09/22/25 by Adriano Swann MD acetazolamide 125 mg PO BID acetazolamide ER 500 mg PO TID albuterol sulfate 90 mcg/actuation (Ventolin HFA) 2 puffs inhalation Q4-6H PRN atorvastatin 40 mg PO DAILY fluticasone furoate-vilanterol 200-25 mcg/dose (Breo Ellipta) 1 ea inhalation DAILY furosemide 40 mg PO DAILY metoprolol succinate ER 200 mg PO BEDTIME montelukast 10 mg PO BEDTIME norethindrone (contraceptive) 0.35 mg PO DAILY olmesartan 20 mg PO DAILY omeprazole 40 mg PO DAILY sumatriptan succinate 100 mg PO Q2-4H PRN umeclidinium 62.5 mcg/actuation (Incruse Ellipta) 1 inh inhalation DAILY zolpidem 5 mg PO BEDTIME HPI HPI TV [employer] [facility] BMI 49.4: Details: Start time: 10.16am, End time: 11.16am ?I spent 55 minutes speaking with the patient on the phone plus an additional 5 minutes reviewing and updating records for a total of 60 minutes HPI Comments Details: Previous weight loss efforts: [facility] program, Radha[facility] from [facility] for 4 months: lost 4olbs and regained Wakes up: 7am, Sleeps: 12am Breakfast: skips Lunch: 1-2pm ([employer] fast food) Dinner: 6pm (steak, chicken, vegetables) Snacks: 4pm (chips), 8-9pm (popcorn) Exercise: none Beverages: Coffee: none, Tea:Iced tea: 32oz [employer] Donut x4/wk, Soda: occasionally, Juice: none, ETOH: none PFSH Medical History (Updated 09/22/25 @ 10:35 by Adriano Swann MD) GERD (gastroesophageal reflux disease) Insomnia Morbid obesity Family history of sickle cell trait MATT (obstructive sleep apnea) Right hip pain Pseudotumor cerebri Pedal edema PCOS (polycystic ovarian syndrome) Palpitations Morbid obesity due to excess calories Migraine Back pain Iron deficiency anemia Hyperlipidemia HTN (hypertension) Chiari malformation type I Binge-eating disorder in partial remission Asthma Anxiety and depression Surgical History (Updated 03/03/25 @ 15:38 by Jalyn Ann RN) Hx of adenoidectomy Hx of wisdom tooth extraction History of tonsillectomy and adenoidectomy Family History (Updated 08/17/25 @ 10:23 by Veronica Melvin CMA) Mother Hypertension Kidney problem Father Diabetes Heart problem Brother No problems noted. Sister Thyroid condition Social History Are you a primary health care specialist to a significant other at home: No Do you presently have visiting nurse or other home services: No Patient Tobacco Use Status: Never used Tobacco Telehealth Telehealth Telehealth Platform: Telephone Location of provider rendering services: practice address Location of patient: address on file Patient Identification confirmed using: Name, : Yes Telehealth method: voice only Patient verbally consented to treatment: Yes Patient verbally consented to billing insurance company: Yes Patient informed of any privacy concerns related to visit: Yes Minutes spent on Phone/Video with Pt.: 60 Assessment & Plan Assessment & Plan (1) Morbid obesity: Code(s): E66.01 - Morbid (severe) obesity due to excess calories Category: Medical Plan: 1. As we discussed, based on your present BMI you are approximately 150lbs overweight. In my opinion, for any weight loss strategy to be successful should have a high probability to help you lose at least 130lbs out of 150lbs of the extra weight you carry. We discussed in detail the available therapeutic options: 1) our lifestyle intervention program that has an average weight loss of 10% in 3 months.?Some patients continue it for longer and have lost over 50lbs but this is not common. Our lifestyle program can be provided by me. I will provide you with a link to use the darci if you choose to do so. We use protein shakes and protein bars to replace some of the meals of the day and cover your appetite better. We will decide together the exact combination. 2) Weight loss medications: these can be used in conjunction with our lifestyle program or you may choose to use them without following a lifestyle program from my program but your own. As we discussed, your insurance will not cover the weight loss injections. We also discussed that you can self pay for the first 3 months and the cost is $249 for the first month and $499 for any other month thereafter. These payments go to the drug company directly and not to us. As we discussed, this is not a technician terminal and repeater solution, as most patients put all the weight back once they are off the medication. 3) We also discussed about the lap sleeve gastrectomy. In my opinion this is the best option to solve your problem based on your situation and should be used in conjunction with the two previous options. A good strategy to make this decision to proceed with surgery, as soon as you achieve a specific goal with the lifestyle intervention and medication options: to lose least 10% of your initial weight in 3 months. ?I emphasized the importance of close follow-up, adherence to instructions and good communication. The surgery does not replace the need to change your lifestlyle which is the cause of the obesity problem. The surgery provides the motivation to try again to change your lifestyle, it reduces the appetite and make the transition to a better lifestyle easier and doubles the amount of weight you would lose compared to doing the lifestyle change without the surgery. You will need to be on a liquid diet with protein shakes for 2 weeks before surgery to maximize weight loss and boost your nutritional status to recover better from surgery and also for the first two weeks after surgery to let the stomach heal before we introduce other foods. After the first 2 weeks we will introduce protein bars and soft foods like scrambled eggs, cottage cheese and yogurt and after the 6th week will introduce meat, fish and cooked vegetables in small amounts. Over time you should be able to eat everything in small amounts. Side effects like nausea, vomiting, heartburn or abdominal pain are not common in the practice unless you are not following in the practice. This operation requires lifetime commitment to following in our practice and communication with me. You will much less weight and experience side effects if you don?t communicate or not following in the practice. Complications are rare and in our practice is about 1/10 of the national average. 2. Regardless of what you decide to do, please buy immediately a blood pressure monitor with a proper size cuff and start measuring your blood pressure every morning. It was extremely high in our office and that's very dangerous.
[2025-09-22 10:41] VITALS: BMI 49.4
== END 2025-09-22 11:17 | disposition home or self-care (01) ==
LOC: HO.HBS 08:20
PROVIDERS: Visit Provider Surgery
DX: E66.01 Morbid (severe) obesity due to excess calories (principal); Z68.42 Body mass index [BMI] 45.0-49.9, adult
CPT/HCPCS: 98011